=== PATIENT | female | born 1955 | race Caucasian/White ===

== ENCOUNTER 2018-05-20 08:45 | Day surgery (SDC) | payer BC, OTHER ==
--- NOTE | 2018-05-14 14:16 | HP ---
Admitting History and Physical - Primary Care Physician PCP: Norris Mar - Admission Chief Complaint: Right breast cancer History of Present Illness: 62 year old postmenapausal femalewas found to have new calcifications right breast 3;00and 12:00 region. US breast was negative. She underwent stereotactic core biopsies at [place] 04/2018 . Right breast 3:00 showed invasive ductal carcinoma ER+/OK-/HER2- and the 1:00 right breast showed sclerosing adenosis. Bilateral breast MRI 04/2018 showed newly diagnosed right breast cancer and no mutifocal aor contralateral disease. History Source: Patient Limitations to Obtaining History: No Limitations - Past Surgical History Past Surgical History: Yes: Tonsillectomy - Smoking History Smoking history: Never smoked Have you smoked in the past 12 months: No - Alcohol/Substance Use Hx Alcohol Use: No Home Medications - Allergies Allergies/Adverse Reactions: Allergies Allergy/AdvReac Type Severity Reaction Status Date / Time No Known Allergies Allergy Verified 05/14/18 14:17 Family Disease History - Family Disease History Family Disease History: CA: Father (ocular melanoma and lung ca) Physical Examination Constitutional: Yes: Well Nourished Breast(s): Yes: Other (full B cups with post bx bruising and changes right breast S/P biopsies. left breast negative no palpable masses or adenopathy bilaterally) Problem List - Problems (1) Breast cancer, right breast Code(s): C50.911 - MALIGNANT NEOPLASM OF UNSP SITE OF RIGHT FEMALE BREAST Qualifiers: Breast location: overlapping sites of breast Estrogen receptor status: positive Patient sex: female Qualified Code(s): C50.811 - Malignant neoplasm of overlapping sites of right female breast; Z17.0 - Estrogen receptor positive status [ER+] Assessment/Plan Right breast wide excision, mammogram needle localization, sentenel node biopsy ,possible axillary node dissection, intraop radiation
[2018-05-15 11:40] VITALS: BMI 24.0
[2018-05-20] MEDS ORDERED: BUPIVACAINE HCL/PF 2.5 MG/ML - 30 ML VIAL IJ ONE (13:00)
[2018-05-20] MEDS ORDERED: ISOSULFAN BLUE 10 MG/ML VIAL SQ ONE (13:00)
[2018-05-20] MEDS ORDERED: MIDAZOLAM HCL 2 MG/2 ML SINGLE DOSE VIAL ONE ×2 (13:02→13:37)
[2018-05-20] MEDS ORDERED: LIDOCAINE HCL/PF 2% SDV 5ML VIAL ONE (13:31)
[2018-05-20] MEDS ORDERED: SODIUM CHLORIDE 0.9% P/F 10 ML VIAL IJ ONE (13:31)
[2018-05-20] MEDS ORDERED: ONDANSETRON 4 MG/2 ML VIAL ONE (13:31)
[2018-05-20] MEDS ORDERED: ceFAZolin SODIUM 1 GM VIAL ONE (13:31)
[2018-05-20] MEDS ORDERED: DEXAMETHASONE SOD PHOSPHATE 4 MG/1 ML VIAL ONE (13:31)
[2018-05-20] MEDS ORDERED: SUCCINYLCHOLINE CHLORIDE 200 MG/10 ML VIAL ONE (13:31)
[2018-05-20] MEDS ORDERED: PROPOFOL 20 ML ONE (13:31)
[2018-05-20] MEDS ORDERED: ROCURONIUM BROMIDE 50 MG/5 ML VIAL ONE (13:32)
[2018-05-20] MEDS ORDERED: DESFLURANE GAS 240 ML BOTTLE IH ONE (13:39)
[2018-05-20] MEDS ORDERED: ONDANSETRON 4 MG/2 ML VIAL IVPUSH PRN (15:47)
[2018-05-20] MEDS ORDERED: KETOROLAC TROMETHAMINE 30 MG/1 ML VIAL IVPUSH PRN (15:47)
[2018-05-20] MEDS ORDERED: DEXTROSE 5%-0.45% SALINE 1,000 ML IV SCH (16:00)
[2018-05-20] MEDS ORDERED: ePHEDrine SULFATE 50 MG/1 ML AMPULE ONE (16:07)
[2018-05-20] MEDS ORDERED: NEOSTIGMINE METHYLSULFATE 0.5 MG/ML - 10 ML MDV ONE (16:16)
[2018-05-20] MEDS ORDERED: GLYCOPYRROLATE 0.2 MG/1 ML VIAL ONE (16:16)
[2018-05-20] MEDS ORDERED: KETOROLAC TROMETHAMINE 30 MG/1 ML VIAL ONE (16:17)
[2018-05-20] MEDS ORDERED: GUM MASTIC/STORAX/MSAL/ALCOHOL 1 DRP DROPSBTL MC ONE (16:23)
--- NOTE | 2018-05-20 16:26 | OP ---
DATE OF OPERATION: 05/20/2018 PREOPERATIVE DIAGNOSIS: Right breast medial overlapping breast cancer. POSTOPERATIVE DIAGNOSIS: Right breast medial overlapping breast cancer. PROCEDURE: Right breast partial mastectomy with mammographic needle localization and right axillary sentinel lymph node biopsy with intraoperative radiation therapy. PRIMARY SURGEON: Norris Mar MD COAL DELIVERER: SEBASTIAN Prajapati ANESTHESIA: General endotracheal anesthesia. COMPLICATIONS: There are no complications. Briefly, the patient is a 62-year-old G3, P3, postmenopausal white female of Anabaptist heritage. She has no family history of breast cancer or ovarian cancer, but her father had ocular melanoma at age 65 and lung cancer at age 73. The patient was found to calcifications in the right breast 3 o'clock region on screening mammography on March 20, 2018. Ultrasound was negative. She underwent a stereotactic core biopsy on April 25, 2018, showing an intermediate grade infiltrating ductal cancer which was ER positive, CO negative, HER2/jadyn negative with a Ki67 less than 10%. A separate area was biopsied in the 1 o'clock region of the right breast which showed sclerosing adenosis. The patient was advised on undergoing a right breast partial mastectomy with intraoperative radiation and sentinel lymph node biopsy. She was seen by the radiation oncologist preoperatively and was felt to be a good candidate for the TARGIT-US trial. MRI showed the cancer to be localized. The patient was brought in for the procedure on May 20, 2018. She first underwent a mammographic needle localization and lymphoscintigraphy at [facility] and was brought to the [place] holding area. In the holding area, site verification was made, and informed consent was obtained. She was brought into the operating room and laid on the OR table in the supine position. Venodynes were placed on the lower extremities prior to induction. She received a g of Ancef prior to incision. She underwent general endotracheal anesthesia. The right breast was then sterilely prepped and draped in the usual fashion with the wire prepped in the field. Three mL of Lymphazurin blue were injected intradermally and peritumorally around the right breast needle localization site. Massage was instituted. An incision was made just below the hair-bearing area of the right axilla and dissection was undertaken, and 2, hot, blue nodes were easily found in the level 1 region of the right axilla. The first sentinel lymph node had a 10-second gamma count of 14,525, and the second sentinel lymph node had a 10-second gamma count of 5928. Background count after removal of these 2 nodes was 133, and no other blue or hot nodes were found. Hemostasis was achieved, and the axial wound was closed using interrupted 2-0 plain suture, and then interrupted 3-0 deep dermal Vicryl suture and a running 4-0 subcuticular Biosyn suture. At this point, the wide excision was undertaken around the right breast needle localization site. A curvilinear incision was made just towards the inner aspect of the right breast periareolar region. Dissection was undertaken around the needle localization site, and the breast tissue was completely removed from around the wire. There was a hematoma cavity from the biopsy site which was entered since it was fairly superficial and the specimen was completely removed with the wire in the middle of the specimen. The specimen was oriented with a long lateral and short superior suture, and specimen radiograph showed removal of both the top hat clip where the cancer was as well as a barbell clip where she had the benign biopsy. Specimen was sent to Pathology in formalin, and both sentinel nodes were sent to Pathology in formalin separately. Separate margins were then taken on the superior, inferior, medial, lateral, deep, and anterior margins with sutures marked in the biopsy cavity side. These were all sent separately to Pathology as margins. At this point, intraoperative radiation was accomplished by the breast tissue around the 4-cm Intrabeam device which was placed sterilely in the wound. Radiation was accomplished after about 25 minutes, and after it was completed, the device was removed. Hemostasis was achieved. The wound was then closed with a 4 x 3 cm tissue transfer closure to fill in the defect in the central part of the right breast. The breast tissue was reapproximated using 2-0 plain suture. The skin was closed using interrupted 3-0 deep dermal Vicryl suture and a running 4-0 subcuticular Biosyn suture. Mastisol and Steri-Strips were applied over the wound, and compressive dressing was applied over this. Endotracheal tube was removed at the end of the case, and the patient will be recovered in the postanesthesia care unit and will be discharged home the same day once discharge criteria are met. She is to follow up in the office in 1 week for formal wound and pathology check. All sponge and needle counts were correct at the end of the case. Estimated blood loss was about 20 mL. Finn [id number]
[2018-05-20] MEDS ORDERED: BUPIVACAINE HCL/PF 0.25% (2.5MG/ML) 10 ML VIAL IJ ONE (16:38)
[2018-05-20] MEDS ORDERED: oxyCODONE HCL 5 MG TABLET PO PRN (17:09)
[2018-05-20 18:02] VITALS: TEMP 98.1
[2018-05-20 19:55] VITALS: BP 101/59; PULSE 72
--- NOTE | 2018-05-21 12:29 | OP ---
DATE OF OPERATION: 05/20/2018 PREOPERATIVE DIAGNOSIS: Right breast cancer. POSTOPERATIVE DIAGNOSIS: Right breast cancer. PROCEDURE: Postlumpectomy intraoperative radiation therapy for right breast cancer. SURGEON: Norris Mar MD INSTRUMENT SPECIALIST/RADIATION ONCOLOGIST: Hesham Monroy MD ANESTHESIA: General. COMPLICATIONS: None. INDICATION: The patient is a 62-year-old woman with a biopsy proven clinical stage 1A invasive ductal carcinoma of the right breast ER positive, HER2 negative who is a candidate for breast conservation surgery which she has elected as well as intraoperative radiation therapy on the [facility]. PROCEDURE: Dr. Mar performed right lumpectomy and sentinel lymph node biopsy which he has dictated. After excision of additional margin the lumpectomy cavity was prepared and sized with a 4.0-cm diameter spherical applicator which was placed into the operative cavity at the 2 o'clock aspect of the right breast. The surrounding breast tissues were cinched around the applicator with a Vicryl purse-string suture. I performed a clinical and ultrasound simulation to ensure that the applicator was located within the operative bed with close apposition of the surrounding breast tissue to the surface of the applicator. Ultrasound measurements confirmed a minimum yvrw-dv-kxqimoqlxn separation of 1.45 cm at the 9 o'clock aspect of the applicator. Saline-soaked gauze was placed between the skin and breast tissue to minimize skin dose. Shielding material was placed over the breast to reduced scatter radiation. The patient received a total dose of 20 Gy prescribed to 0 mm from the applicator surface using 50-kV x-rays with the Intrabeam. Prior to treatment the system was double-checked with appropriate physics quality systems engineer measures. The total time required for the treatment was 25 minutes, 39 seconds at a dose rate of 0.779 Gy/minute. When the treatment was completed survey of the patient and room confirmed that the Intrabeam source was off. There were no complications or unexpected interruptions. Dr. Mar removed the radiation applicator from the patient and completed the surgery. The patient will be discharged to the recovery room following the surgery. Finn [id number] cc: Norris Mar MD [facility]
--- NOTE | 2018-05-23 13:56 | PATH ---
Surgical Pathology Report Patient Name: SOPHIE GILBERT [facility]. Rec. #: [id number] /Age/Gender: 1955 (Age: 62) / F Account: [id number] Location: [facility] AMBULATORY Taken: 05/20/2018 Received: 05/20/2018 Reported: 05/23/2018 Physicians: Norris Mar M.D. Specimen(s) Received A: SENTINEL LYMPH NODE # 1 RIGHT BREAST B: SENTINEL LYMPH NODE # 2 RIGHT BREAST C: RIGHT BREAST SUPERIOR MARGIN D: RIGHT BREAST INFERIOR MARGIN E: RIGHT BREAST ANTERIOR MARGIN F: RIGHT BREAST POSTERIOR MARGIN G: RIGHT BREAST LATERAL MARGIN H: RIGHT BREAST MEDIAL MARGIN I: RIGHT BREAST WIDE EXCISION Clinical History Invasive carcinoma, wide excision Final Diagnosis A. LYMPH NODE, RIGHT BREAST SENTINEL #1, EXCISION: ONE LYMPH NODE, NEGATIVE FOR METASTATIC CARCINOMA (0/1). B. LYMPH NODE, RIGHT BREAST SENTINEL #2, EXCISION: ONE LYMPH NODE, NEGATIVE FOR METASTATIC CARCINOMA (0/1). C. BREAST, RIGHT, SUPERIOR MARGIN, EXCISION: BENIGN BREAST TISSUE SHOWING SMALL RADIAL SCAR. D. BREAST, RIGHT, INFERIOR MARGIN, EXCISION: BENIGN BREAST TISSUE SHOWING SMALL RADIAL SCAR AND FOCAL PRIOR BIOPSY SITE CHANGES. E. BREAST, RIGHT, ANTERIOR MARGIN, EXCISION: BENIGN BREAST TISSUE SHOWING PRIOR BIOPSY SITE CHANGES. F. BREAST, RIGHT, POSTERIOR MARGIN, EXCISION: BENIGN BREAST TISSUE SHOWING FIBROADENOMA AND FIBROCYSTIC CHANGE. G. BREAST, RIGHT, LATERAL MARGIN, EXCISION: FOCAL ATYPICAL DUCTAL HYPERPLASIA (ADH) AND STROMAL FIBROSIS. H. BREAST, RIGHT, MEDIAL MARGIN, EXCISION: BENIGN BREAST TISSUE. I. BREAST, RIGHT, WIDE EXCISION: TWO FOCI OF MICROINVASIVE CARCINOMA (< 1 MM) PRESENT IN ASSOCIATION WITH DUCTAL CARCINOMA IN SITU (DCIS), SOLID TYPE, INTERMEDIATE NUCLEAR GRADE. (SEE NOTE) SURGICAL MARGINS ARE UNINVOLVED BY MICROINVASIVE CARCINOMA AND DCIS; MICROINVASIVE CARCINOMA AND DCIS ARE AT 6 MM FROM THE CLOSEST (SUPERIOR) MARGIN. SEE SPECIMENS C-H FOR FINAL MARGINS. NO LYMPHOVASCULAR INVASION IS IDENTIFIED. REMAINING BREAST TISSUE SHOWS ATYPICAL DUCTAL HYPERPLASIA (ADH), SCLEROSING ADENOSIS, SMALL RADIAL SCAR, STROMAL FIBROSIS AND ASSOCIATED CALCIFICATIONS. PRIOR BIOPSY SITE CHANGES ARE PRESENT. PATHOLOGIC STAGE (pTNM): PT1a (m) pN0. (SEE NOTE). SEE ALSO INVASIVE CARCINOMA CASE SUMMARY BELOW. . Note: The pathologic "T" stage is based on the presence of three foci of invasive ductal carcinoma ranging from 2-3 mm in greatest dimension, identified in prior core biopsy from outside institution ([id number]: our slide review case # [id number]) in addition to the foci of microinvasive carcinoma present in current specimen. Myoepithelial immunohistochemical markers (SMM-HC & p63, performed at [facility] on blocks I1 & I2) demonstrate the absence of myoepithelial cells in the foci of microinvasion. This finding supports the diagnosis. Comments Breast Invasive Carcinoma: Surgical Pathology Case Summary (Based on AJCC TNM 8 th edition) Procedure _X_ Excision (less than total mastectomy) Specimen Laterality _X_ Right Tumor Size _X_ Greatest dimension of largest invasive focus >1 mm : 3 mm (based on prior core biopsy : [id number]) Histologic Type _X_ Invasive carcinoma of no special type (ductal, not otherwise specified) Histologic Grade (Taz Histologic Score) Glandular (Acinar)/Tubular Differentiation _X_ Score 3 (<10% of tumor area forming glandular/tubular structures) Nuclear Pleomorphism _X_ Score 2 Mitotic Rate _X_ Score 1 Overall Grade _X_ Grade 2 (scores of 6 or 7) Tumor Focality _X_ Multiple foci of invasive carcinoma Number of foci: 5 Sizes of individual foci: 3 mm, 3 mm, 2 mm, < 1 mm (x2) ((based on prior core biopsy : [id number] and current specimen) Ductal Carcinoma In Situ (DCIS) _X_ DCIS is present in specimen _X_ Positive for extensive intraductal component (EIC) Size (extent) of DCIS: Number of blocks with DCIS: 2 Number of blocks examined: 39 (based on specimens C-I) Margins Invasive Carcinoma Margins _X_ Uninvolved by invasive carcinoma Distance from closest margin (millimeters): 6 mm from superior margin in wide excision I. Final superior margin C is negative for carcinoma. DCIS Margins _X_ Uninvolved by DCIS Distance from closest margin (millimeters): 6 mm from superior margin in wide excision I. Final superior margin C is negative for DCIS. Regional Lymph Nodes _X_ Uninvolved by tumor cells Number of Lymph Nodes Examined: 2 Number of [place] Nodes Examined: 2 Treatment Effect _X_ No known presurgical therapy Lymphovascular Invasion _X_ Not identified Pathologic Stage Classification (pTNM, AJCC 8th Edition) Primary Tumor (Invasive Carcinoma) (pT) _X_ pT1a (m): Tumor >1 mm but =5 mm in greatest dimension (round any measurement >1.0-1.9mm to 2 mm) Regional Lymph Nodes (pN) Category (pN) _X_ pN0 (sn): No regional lymph node metastasis identified or ITCs only Biomarker Studies Per report of prior core biopsy from [place], [place] ([id number] slide review case #[id number]), results of ER , [place], HER2 & Ki67 studies are as follows: ER: 95 % nuclear staining with strong intensity (positive). [place]: Negative. Her2 IHC: Negative (0/1+). Ki67: < 10%. Electronically Signed Alisha Brenner M.D. Gross Description A. Received in formalin labeled "sentinel lymph node #1 right breast," is a 1.0 x 0.6 x 0.6 cm lymph node with attached fat. The specimen is bisected and entirely submitted in one cassette. B. Received in formalin labeled "sentinel lymph node #2," is a 1.2 x 0.6 x 0.3 cm lymph node with attached fat. The specimen is submitted in toto in one cassette. C. Received in formalin labeled "right breast superior margin," is a 3.2 x 1.7 x 1.7 cm portion of fibroadipose tissue with a suture marking the biopsy cavity side, per the surgeon. The new margin is inked blue and the specimen is serially sectioned. The specimen is entirely and sequentially submitted in 7 cassettes. D. Received in formalin labeled "right breast inferior margin," is a 2.5 x 1.8 x 0.8 cm portion of fibroadipose tissue with a suture marking the biopsy cavity side, per the surgeon. The new margin is inked blue and the specimen is serially sectioned. The specimen is entirely submitted in 3 cassettes. E. Received in formalin labeled "right breast anterior margin," is a 1.8 x 1.0 x 0.2 cm portion of fibroadipose tissue with a suture marking the biopsy cavity side, per the surgeon. The new margin is inked blue and the specimen is serially sectioned. The specimen is entirely submitted in 2 cassettes. F. Received in formalin labeled "right breast posterior margin," is a 2.5 x 2.0 x 0.8 cm portion of fibroadipose tissue with a suture marking the biopsy cavity side, per the surgeon. The new margin is inked blue and the specimen is serially sectioned. The specimen is entirely submitted in 3 cassettes. G. Received in formalin labeled "right breast lateral margin," is a 2.8 x 2.5 x 0.5 cm portion of fibroadipose tissue with a suture marking the biopsy cavity side, per the surgeon. The new margin is inked blue and the specimen is serially sectioned. The specimen is entirely submitted in 3 cassettes. H. Received in formalin labeled "right breast medial margin," is a 2.0 x 1.7 x 0.8 cm portion of fibroadipose tissue with a suture marking the biopsy cavity side, per the surgeon. The new margin is inked blue and the specimen is serially sectioned. The specimen is entirely submitted in 3 cassettes. I. Received in formalin, labeled "right breast wide excision," is a 4.7 x 4.2 x 2.6 cm. lei-yellow, irregular, portion of fibroadipose tissue with a needle localization wire present. There is a short suture marking the superior aspect and a long suture marking the lateral aspect, per the surgeon. There is no skin present. The specimen is inked as follows: Superior blue; inferior green; anterior and lateral red; medial yellow; posterior black. The specimen is serially sectioned from anterior to deep. Sectioning reveals a 1.6 x 1.0 x 0.6 cm ill-defined firm fibrous mass associated with a hemorrhagic biopsy site. The mass is 0.6 cm from the inferior margin and 0.7 cm from the superior margin. The remaining breast parenchyma displays abundant dense, white, focally firm fibrous tissue. Sections ( approximately 95% of the entire tissue) are submitted in 18 cassettes as follows: 1-full-face section of mass and biopsy cavity with superior and inferior margins; 7-6-aeuohujllq sections of mass and biopsy cavity, each with superior and inferior margins; 7-6-urwkwhjtvt fibrous tissue (each with lateral, superior and inferior margins); 7-8-medial margin; 9-anterior margin; 10-posterior margin; 54-36-xvmreypmyc fibrous tissue with lateral margin; 14-17- additional fibrous tissue with medial margin; 18- additional posterior margin. Time to formalin fixation: 25 minutes Total formalin fixation time: Approximately 27 hours. 05/21/2018 saudi05/21/2018
== END 2018-05-20 19:55 | disposition home or self-care (01) ==
LOC: FASU 08:45
PROVIDERS: ATTEND Surgery Surgical Oncology
PROC: 0HBT0ZZ Excision of Right Breast, Open Approach (ICD-10-PCS; principal; 2018-05-20 13:00)
PROC: DMY17ZZ Contact Radiation of Right Breast (ICD-10-PCS; 2018-05-20 13:00)
DX: C50.811 Malignant neoplasm of overlapping sites of right female breast (principal); Z17.0 Estrogen receptor positive status [ER+]
CPT/HCPCS: 19281; 76641-TC-50; 77290; 77300; 77316; 77332; 77370-TC; 77424; 78195-TC; 88307-TC; 88341-TC; 88342-TC; 94760; A9541; C9726